=== PATIENT | female | born 1960 | race Caucasian/White ===

== ENCOUNTER 2024-10-28 12:25 | Inpatient (IN) ==
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
[2024-10-28 13:27] LABS: Hematocrit (blood only) 44.0 % (37.0-47.0); Hemoglobin 15.3 g/dl (12.0-16.0); Immature Granulocytes # (auto) 0.02 K/uL (0.01-0.20); Immature Granulocytes % (auto) 0.3 %; Mean Corpuscular Hemoglobin 30.2 pg (25.0-34.0); Mean Corpuscular Volume 87.0 fL (80.0-100.0); Platelet Count 246 K/uL (130-400); RDW Standard Deviation 43.0 fL (36.4-46.3); Red Blood Count 5.06 M/uL (4.20-5.40); White Blood Count 7.83 K/ul (4.8-10.8)
[2024-10-28 13:33] LABS: Appearance Urine Clear (Clear); Bacteria Urine Automated 2+ (None Seen); Cast Urine Automated 0-2 /lpf (0-2); Glucose Urine UA Negative (Negative); RBC Urine Automated 0-2 /hpf (0-2); WBC Urine Automated 21-50 /hpf (0-5)
[2024-10-28 13:34] LABS: Alanine Aminotransferase 12.0 U/L (7-52); Albumin Globulin Ratio 1.6 (0.9-2); Alkaline Phosphatase 76.0 U/L (34-104); Anion Gap 9.0 (3-11); Bilirubin,Total 0.5 mg/dl (0.2-1.0); Blood Urea Nitrogen 7.0 mg/dl (6-23); Calcium 9.6 mg/dl (8.6-10.3); Carbon Dioxide 22.0 mmol/L (21-32); Chloride 109.0 mmol/L (98-107); Creatinine Clr Calc Pharmacy 77.2 ml/min; Globulin 2.9 gm/dl (2.5-4.0); Glucose 108.0 mg/dl (70-99(Fasting)); Potassium 3.6 mmol/L (3.5-5.1); Sodium 140.0 mmol/L (136-145); Total Protein 7.5 gm/dl (6.0-8.3)
[2024-10-28 13:49] LABS: Thyroid Stimulating Hormone 1.804 uIu/ml (0.300-4.500)
[2024-10-28 13:59] LABS: Acetaminophen < 3 ug/ml (10-30); Salicylate < 3.0 mg/dl (3.0-30)
[2024-10-28] MEDS: NICOTINE 14 MG/24 HR PATCH TD SCH (14:06)
[2024-10-28 14:07] LABS: Amphetamines+Metham, Urine Neg (Neg); MDMA (Ecstacy), Urine Neg (Neg); Marijuana, Urine Pos (Neg)
[2024-10-28] MEDS ORDERED: BISMUTH SUBSALICYLATE 262 MG CHEW PO PRN (20:37)
[2024-10-28] MEDS ORDERED: ALUMINUM/MAGNESIUM SUSP 30 ML UDC PO PRN (20:37)
[2024-10-28] MEDS ORDERED: LORazepam 1 MG TAB PO PRN (20:38)
[2024-10-29] MEDS: ACETAMINOPHEN 325 MG TAB PO PRN (05:53)
[2024-10-29] MEDS: REMOVE NICODERM PATCH SCH (09:38)
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
[2024-10-30] MEDS: SULFAMETHOXAZOLE/TRIMETHOPRIM DS 800/160MG TAB PO SCH (14:57)
[2024-10-30] MEDS: SODIUM CHLORIDE 0.65% NA SOLN 45 ML (OCEAN) PRN (15:34)
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
[2024-10-30] MEDS: ARIPiprazole 5 MG TAB PO SCH (21:07)
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
[2024-10-31] MEDS: OLANZapine 10 MG TAB PO SCH (20:40)
[2024-11-01 08:22] LABS: Marijuana Quant, GCMS Urine 24 ng/mL (<5)
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
[2024-11-01] MEDS: OLANZapine 10 MG TAB PO SCH (20:32)
[2024-11-01] MEDS ORDERED: OLANZapine 10 MG TAB PO SCH (21:00)
[2024-11-02] MEDS: PSYLLIUM HUSK 4GM PACKET PO SCH (08:48)
--- NOTE | 2024-11-02 15:32 | Psychiatric Progress Note ---
Date of Service November 02, 2024 Impression / Recommendations Impression ADRIAN MATOS is a 63-year-old woman who is currently unhoused (though reports her permanent address is [facility]), has a history of delusions and paranoia, and was admitted on 10/28/24 20:09 on a 201 voluntary commitment for psychosis and contingent SI related to risk of homelessness after being evicted from a local hotel after overdrafting her account. Diagnostically consistent with unspecified psychosis with differential including primary psychotic disorder like schizophrenia (though appears fairly organized in terms of her behaviors and no obvious hallucinations; more likely schizoaffective disorder given limited negative symptoms) vs delusional disorder (seems likely given long history of fixed persecutory delusions and paranoia) vs bipolar affective disorder current manic episode (some hyperreligious delusions but also with recent misuse of finances but no other psychomotor agitation, sleep issues or speech changes to suggest at this point) vs substance-induced psychosis given use of cannabis and UDS positive for cannabis. Also possible is contribution of symptoms from chronic Lyme disease which is reportedly the reason she is on disability, unclear when this was diagnosed. A: Patient appears less preoccupied about persecutory delusions. Presenting improved sleep and appetite. Social work established outpatient appointments. Continued conditional suicidal ideation. MNPR due to psychosis with significant paranoia, persecutory delusions Overall I spent a total of 45 minutes for this admission including review of chart records, review of labwork, direct evaluation of the patient, counseling the patient, ordering medication, risk assessment, discussion with the psychiatric liason RN and documentation in the electronic health record. (1) Feeling suicidal: (2) Psychotic disorder with delusions: (3) Lyme disease: (4) Cannabis use disorder, mild, abuse: (5) Homeless: Plan 11/02/2024: Continue medications and treatment plan 11/01/2024: Olanzapine 10 mg every evening instead of night 10/31/2024: Discontinue aripiprazole Start olanzapine 10 mg at bedtime 10/30/2024: Start Bactrim DS twice daily for 3 days Start aripiprazole 5 mg at bedtime 10/29/2024: The patient was admitted to the [facility] ([facility]) on q15 min checks (behavioral with suicide precautions) for safety. The patient will participate in group, recreational, and milieu therapies and will be offered additional individual and family sessions as clinically appropriate. -She is declining all medications, she would likely benefit from an antipsychotic -She is willing to get established with a behavioral health housing case manager, LIZETTE to begin this process -No indication at this point that she lacks decision making capacity regarding management of her finances, nor is she interested in getting help with her finances through a rep payee. Rather it seems she struggles with impulsivity and spends her money in non-financially responsible ways Inventory Assets Strengths: knows how to seek out resources to meet her needs Needs: stabilization, medication, outpatient resources Suicide Risk Level Suicide Risk Level: Moderate (q15 min suicide checks) (endorses contingent SI but also with psychosis so difficult to know how disorganized she may be, for now feels safe in the hospital and feels able to ask for support if needed) Risk Factors Assessment Male: No : Yes Do You Have Access To A Gun?: No Health Problems: No Mental Health Diagnoses: Yes Substance Use Disorders: Yes Previous Attempt: No Family History of Suicide: No Previous Psychiatric Hospitalization: Yes Hopelessness: No Protective Factors Assessment Taoism Beliefs: Yes Employed: No (Unable to attain employment after trying) Stable Relationships: No Supportive Family: No Good Rapport with Provider: No (no outpatient providers) Interval History Identifying Information ADRIAN MATOS is a 63-year-old woman who is currently unhoused (though reports her permanent address is [facility]), has a history of delusions and paranoia, and was admitted on 10/28/24 20:09 on a 201 voluntary commitment for psychosis and contingent SI related to risk of homelessness after being evicted from a local hotel after overdrafting her account. Chief Complaint Psychosis Review of Systems Sleep Information Total Hours of Sleep: 6.75 Meal Information Percent Meal Consumed - Breakfast: 90 Percent Meal Consumed - Lunch: 100 Percent Meal Consumed - Dinner: 100 Subjective Subjective Patient was seen & assessed and interval progress reviewed with treatment team nursing and social work Patient reports sleeping better last night. Did not have a bowel movement and took Metamucil. Denies feeling sedated in the morning. Denies AVH. Reports having a RV which is partially completed. Reporting suicidal intent if discharged from the hospital. Physical Exam Mental Examination Appearance: Well Groomed Eye Contact: Maintains Eye Contact Motor Behavior: Unremarkable Speech: Normal Mood: Euthymic and Calm Affect: Congruent Thought Process: Intact and Linear Thought Content: Intact and Obsessional Thoughts (delusions of persecution) Hallucinations: None Insight: Poor (to limited) Judgement: Poor (to limited) Vital Signs (Past 24 Hours) Last Vital Signs Temp 36.9 C 11/02/24 06:23 Pulse 89 11/02/24 06:24 Resp 16 11/02/24 06:23 BP 119/85 11/02/24 06:24 Pulse Ox 98 10/28/24 20:30 O2 Del Method Room Air 10/28/24 20:30 Results & Data ([facility]) Current Inpatient Medications Current Inpatient Medications: Current Inpatient Medications Acetaminophen (Acetaminophen 325 Mg Tab) 650 mg PO Q4H PRN PRN Reason: Headache or Minor Fever Stop: 11/27/24 20:36 Last Admin: 10/31/24 13:24 Dose: 650 mg Al Hydrox/Mg Hydrox/Simethicone (Aluminum/Magnesium Susp 30 Ml Udc) 30 ml PO Q4H PRN PRN Reason: GI Upset Stop: 11/27/24 20:36 Bismuth Subsalicylate (Bismuth Subsalicylate 262 Mg Chew) 2 tab PO Q30M PRN PRN Reason: Loose Stool/Diarrhea Stop: 11/27/24 20:36 Hydroxyzine HCl (Hydroxyzine Hcl 25 Mg Tab) 50 mg PO HSZ PRN PRN Reason: Insomnia Stop: 11/27/24 20:36 Hydroxyzine HCl (Hydroxyzine Hcl 25 Mg Tab) 25 mg PO Q4H PRN PRN Reason: Anxiety Stop: 11/27/24 20:36 Lorazepam (Lorazepam 1 Mg Tab) 1 mg PO BID PRN PRN Reason: Delusions Stop: 11/27/24 20:37 Magnesium Hydroxide (Magnesium Hydroxide Susp 30 Ml Udc) 30 ml PO DAILY PRN PRN Reason: Constipation Stop: 11/27/24 20:36 Miscellaneous (Remove Nicoderm Patch) 1 each N/A DAILY@0859 [facility] Stop: 11/28/24 08:58 Last Admin: 11/02/24 11:16 Dose: 1 each Nicotine (Nicotine 14 Mg/24 Hr Patch) 1 patch TD QAM [facility] Stop: 11/27/24 13:59 Last Admin: 11/02/24 12:23 Dose: 1 patch Olanzapine (Olanzapine 10 Mg Tab) 10 mg PO DAILY@1999 [facility] Stop: 12/01/24 19:59 Last Admin: 11/01/24 20:32 Dose: 10 mg Psyllium Hydrophilic Mucilloid (Psyllium Husk 4gm Packet) 4 gm PO QAM [facility] Stop: 12/02/24 08:59 Last Admin: 11/02/24 08:48 Dose: 4 gm Risperidone (Risperidone 1 Mg Tablet) 1 mg PO BID PRN PRN Reason: Psychosis/Agitation Stop: 11/27/24 20:59 Sodium Chloride (Sodium Chloride 0.65% Na Soln 45 Ml ([place])) 1 - 2 sprays NA PRN PRN PRN Reason: Nasal Dryness/Congestion Stop: 11/27/24 20:36 Last Admin: 10/30/24 15:34 Dose: 2 sprays Mental Health & Subst Abuse Tx Psychiatrist Name of Psychiatrist: Jennifer Forbes Psychiatrist's Date Of Appointment With Psychiatric Provider: 11/10/24 Time of Appointment with Psychiatrist: 8:00 AM Psychiatric Appointment Comment: Arrive at 8am for intake appointment for 1.5 hours for first appt. Therapist Name of Therapist: Refused therapist Art Supervisor Name of Art Supervisor: PATH embedded software manager - Jennifer Ramesh Phone Number for Art Supervisor: [phone] Case Management Appointment Comment: corporate general manager will assist you with housing Post Discharge Appointments Primary Care Physician Name Of Family Doctor/PCP: Behzad Sarmiento Contact Information Discharge Discharge Address: Homeless
[2024-11-02] MEDS: MAGNESIUM HYDROXIDE SUSP 30 ML UDC PO PRN (17:46)
--- NOTE | 2024-11-03 15:42 | Psychiatric Progress Note ---
Date of Service November 03, 2024 Impression / Recommendations Impression ADRIAN MATOS is a 63-year-old woman who is currently unhoused (though reports her permanent address is [facility]), has a history of delusions and paranoia, and was admitted on 10/28/24 20:09 on a 201 voluntary commitment for psychosis and contingent SI related to risk of homelessness after being evicted from a local hotel after overdrafting her account. Diagnostically consistent with unspecified psychosis with differential including primary psychotic disorder like schizophrenia (though appears fairly organized in terms of her behaviors and no obvious hallucinations; more likely schizoaffective disorder given limited negative symptoms) vs delusional disorder (seems likely given long history of fixed persecutory delusions and paranoia) vs bipolar affective disorder current manic episode (some hyperreligious delusions but also with recent misuse of finances but no other psychomotor agitation, sleep issues or speech changes to suggest at this point) vs substance-induced psychosis given use of cannabis and UDS positive for cannabis. Also possible is contribution of symptoms from chronic Lyme disease which is reportedly the reason she is on disability, unclear when this was diagnosed. A: Patient is presenting stable sleep. Appears less preoccupied about her persecutory delusions which continue to be persistent. Concern for cluster B pathology. Working with case management for housing resources. MNPR due to psychosis with significant paranoia, persecutory delusions Overall I spent a total of 35 minutes for this admission including review of chart records, review of labwork, direct evaluation of the patient, counseling the patient, ordering medication, risk assessment, discussion with the psychiatric liason RN and documentation in the electronic health record. (1) Persecutory delusion: (2) Schizophrenia: (3) Feeling suicidal: (4) Lyme disease: (5) Cannabis use disorder, mild, abuse: (6) Homeless: Plan 11/03/2024: Continue medications and treatment plan 11/02/2024: Continue medications and treatment plan 11/01/2024: Olanzapine 10 mg every evening instead of night 10/31/2024: Discontinue aripiprazole Start olanzapine 10 mg at bedtime 10/30/2024: Start Bactrim DS twice daily for 3 days Start aripiprazole 5 mg at bedtime 10/29/2024: The patient was admitted to the [facility] (locked inpatient mental health unit) on q15 min checks (behavioral with suicide precautions) for safety. The patient will participate in group, recreational, and milieu therapies and will be offered additional individual and family sessions as clinically appropriate. -She is declining all medications, she would likely benefit from an antipsychotic -She is willing to get established with a behavioral health case worker, LIZETTE to begin this process -No indication at this point that she lacks decision making capacity regarding management of her finances, nor is she interested in getting help with her finances through a rep payee. Rather it seems she struggles with impulsivity and spends her money in non-financially responsible ways Inventory Assets Strengths: knows how to seek out resources to meet her needs Needs: stabilization, medication, outpatient resources Suicide Risk Level Suicide Risk Level: Moderate (q15 min suicide checks) (endorses contingent SI but also with psychosis so difficult to know how disorganized she may be, for now feels safe in the hospital and feels able to ask for support if needed) Risk Factors Assessment Male: No : Yes Do You Have Access To A Gun?: No Health Problems: No Mental Health Diagnoses: Yes Substance Use Disorders: Yes Previous Attempt: No Family History of Suicide: No Previous Psychiatric Hospitalization: Yes Hopelessness: No Protective Factors Assessment Christianity Beliefs: Yes Employed: No (Unable to attain employment after trying) Stable Relationships: No Supportive Family: No Good Rapport with Provider: No (no outpatient providers) Interval History Identifying Information ADRIAN MATOS is a 63-year-old woman who is currently unhoused (though reports her permanent address is [facility]), has a history of delusions and paranoia, and was admitted on 10/28/24 20:09 on a 201 voluntary commitment for psychosis and contingent SI related to risk of homelessness after being evicted from a local h otel after overdrafting her account. Chief Complaint Psychosis Review of Systems Sleep Information Total Hours of Sleep: 6 Meal Information Percent Meal Consumed - Breakfast: 100 Percent Meal Consumed - Lunch: 100 Percent Meal Consumed - Dinner: 100 Subjective Subjective Patient was seen & assessed and interval progress reviewed with treatment team nursing and social work Slept well. Having poor boundaries with a peer. Engaging in good self-care. Resistant to signing a release of information forms related to her care. On approach she reports being upset with the dope maintenance worker because they did not wipe down the baseboard where there was a stain. Reports sleeping well. Had a bowel movement. When asked about new concerns related to family she reports no new news. Says that she put on the Internet that she was coming to the hospital and is surprised the family have not tried to reach out. Maintains that they have been paid off. Physical Exam Mental Examination Appearance: Well Groomed Eye Contact: Maintains Eye Contact Motor Behavior: Unremarkable Speech: Normal Mood: Euthymic and Calm Affect: Congruent Thought Process: Intact and Linear Thought Content: Intact and Obsessional Thoughts (delusions of persecution) Hallucinations: None Insight: Poor (to limited) Judgement: Poor (to limited) Vital Signs (Past 24 Hours) Last Vital Signs Temp 36.9 C 11/03/24 06:18 Pulse 79 11/03/24 06:19 Resp 16 11/03/24 06:18 BP 114/55 L 11/03/24 06:19 Pulse Ox 98 10/28/24 20:30 O2 Del Method Room Air 10/28/24 20:30 Results & Data ([facility] [[email or web address] Current Inpatient Medications Current Inpatient Medications: Current Inpatient Medications Acetaminophen (Acetaminophen 325 Mg Tab) 650 mg PO Q4H PRN PRN Reason: Headache or Minor Fever Stop: 11/27/24 20:36 Last Admin: 11/03/24 13:47 Dose: 650 mg Al Hydrox/Mg Hydrox/Simethicone (Aluminum/Magnesium Susp 30 Ml Udc) 30 ml PO Q4H PRN PRN Reason: GI Upset Stop: 11/27/24 20:36 Bismuth Subsalicylate (Bismuth Subsalicylate 262 Mg Chew) 2 tab PO Q30M PRN PRN Reason: Loose Stool/Diarrhea Stop: 11/27/24 20:36 Hydroxyzine HCl (Hydroxyzine Hcl 25 Mg Tab) 50 mg PO HSZ PRN PRN Reason: Insomnia Stop: 11/27/24 20:36 Hydroxyzine HCl (Hydroxyzine Hcl 25 Mg Tab) 25 mg PO Q4H PRN PRN Reason: Anxiety Stop: 11/27/24 20:36 Loratadine (Loratadine 10 Mg Tab) 10 mg PO QAM [facility] Stop: 12/03/24 15:14 Lorazepam (Lorazepam 1 Mg Tab) 1 mg PO BID PRN PRN Reason: Delusions Stop: 11/27/24 20:37 Magnesium Hydroxide (Magnesium Hydroxide Susp 30 Ml Udc) 30 ml PO DAILY PRN PRN Reason: Constipation Stop: 11/27/24 20:36 Last Admin: 11/02/24 17:46 Dose: 30 ml Miscellaneous (Remove Nicoderm Patch) 1 each N/A DAILY@0859 [facility] Stop: 11/28/24 08:58 Last Admin: 11/03/24 08:59 Dose: 1 each Nicotine (Nicotine 14 Mg/24 Hr Patch) 1 patch TD QAM [facility] Stop: 11/27/24 13:59 Last Admin: 11/03/24 08:56 Dose: 1 patch Olanzapine (Olanzapine 10 Mg Tab) 10 mg PO DAILY@1999 [facility] Stop: 12/01/24 19:59 Last Admin: 11/02/24 20:37 Dose: 10 mg Psyllium Hydrophilic Mucilloid (Psyllium Husk 4gm Packet) 4 gm PO QAM [facility] Stop: 12/02/24 08:59 Last Admin: 11/03/24 08:56 Dose: 4 gm Risperidone (Risperidone 1 Mg Tablet) 1 mg PO BID PRN PRN Reason: Psychosis/Agitation Stop: 11/27/24 20:59 Sodium Chloride (Sodium Chloride 0.65% Na Soln 45 Ml ([place])) 1 - 2 sprays NA PRN PRN PRN Reason: Nasal Dryness/Congestion Stop: 11/27/24 20:36 Last Admin: 10/30/24 15:34 Dose: 2 sprays Mental Health & Subst Abuse Tx Psychiatrist Name of Psychiatrist: Jennifer Forbse Psychiatrist's Date Of Appointment With Psychiatric Provider: 11/10/24 Time of Appointment with Psychiatrist: 8:00 AM Psychiatric Appointment Comment: Arrive at 8am for intake appointment for 1.5 hours for first appt. Therapist Name of Therapist: Refused therapist Mailing Machine Operator Name of Mailing Machine Operator: [facility] home health care case manager - Jennifer Ramesh Phone Number for Mailing Machine Operator: [phone] Case Management Appointment Comment: fleet dispatch manager will assist you with housing Post Discharge Appointments Primary Care Physician Name Of Family Doctor/PCP: Behzad Sarmiento Contact Information Discharge Discharge Address: Homeless
[2024-11-03] MEDS: LORATADINE 10 MG TAB PO SCH (15:50)
--- NOTE | 2024-11-04 12:41 | Psychiatric Progress Note ---
Date of Service November 04, 2024 Impression / Recommendations Impression ADRIAN MATOS is a 63-year-old woman who is currently unhoused (though reports her permanent address is [facility]), has a history of delusions and paranoia, and was admitted on 10/28/24 20:09 on a 201 voluntary commitment for psychosis and contingent SI related to risk of homelessness after being evicted from a local hotel after overdrafting her account. Diagnostically consistent with unspecified psychosis with differential including primary psychotic disorder like schizophrenia (though appears fairly organized in terms of her behaviors and no obvious hallucinations; more likely schizoaffective disorder given limited negative symptoms) vs delusional disorder (seems likely given long history of fixed persecutory delusions and paranoia) vs bipolar affective disorder current manic episode (some hyperreligious delusions but also with recent misuse of finances but no other psychomotor agitation, sleep issues or speech changes to suggest at this point) vs substance-induced psychosis given use of cannabis and UDS positive for cannabis. Also possible is contribution of symptoms from chronic Lyme disease which is reportedly the reason she is on disability, unclear when this was diagnosed. A: Patient is presenting stable sleep and behaviors. Has pre-existing persecutory delusions however appears less preoccupied. She is goal directed towards housing presents conditional SI. MNPR due to psychosis with significant paranoia, persecutory delusions Overall I spent a total of 35 minutes for this admission including review of chart records, review of labwork, direct evaluation of the patient, counseling the patient, ordering medication, risk assessment, discussion with the psychiatric liason RN and documentation in the electronic health record. (1) Persecutory delusion: (2) Schizophrenia: (3) Feeling suicidal: (4) Lyme disease: (5) Cannabis use disorder, mild, abuse: (6) Homeless: Plan 11/04/2024: Start MiraLAX daily 11/03/2024: Continue medications and treatment plan 11/02/2024: Continue medications and treatment plan 11/01/2024: Olanzapine 10 mg every evening instead of night 10/31/2024: Discontinue aripiprazole Start olanzapine 10 mg at bedtime 10/30/2024: Start Bactrim DS twice daily for 3 days Start aripiprazole 5 mg at bedtime 10/29/2024: The patient was admitted to the [facility]) on q15 min checks (behavioral with suicide precautions) for safety. The patient will participate in group, recreational, and milieu therapies and will be offered additional individual and family sessions as clinically appropriate. -She is declining all medications, she would likely benefit from an antipsychotic -She is willing to get established with a behavioral health showcase trimmer, LIZETTE to begin this process -No indication at this point that she lacks decision making capacity regarding management of her finances, nor is she interested in getting help with her finances through a rep payee. Rather it seems she struggles with impulsivity and spends her money in non-financially responsible ways Inventory Assets Strengths: knows how to seek out resources to meet her needs Needs: stabilization, medication, outpatient resources Suicide Risk Level Suicide Risk Level: Moderate (q15 min suicide checks) (endorses contingent SI but also with psychosis so difficult to know how disorganized she may be, for now feels safe in the hospital and feels able to ask for support if needed) Risk Factors Assessment Male: No : Yes Do You Have Access To A Gun?: No Health Problems: No Mental Health Diagnoses: Yes Substance Use Disorders: Yes Previous Attempt: No Family History of Suicide: No Previous Psychiatric Hospitalization: Yes Hopelessness: No Protective Factors Assessment Bahai Beliefs: Yes Employed: No (Unable to attain employment after trying) Stable Relationships: No Supportive Family: No Good Rapport with Provider: No (no outpatient providers) Interval History Identifying Information ADRIAN MATOS is a 63-year-old woman who is currently unhoused (though reports her permanent address is [facility]), has a history of delusions and paranoia, and was admitted on 10/28/24 20:09 on a 201 voluntary commitment for psychosis and contingent SI related to risk of homelessness after being evicted from a local hotel after overdrafting her account. Chief Complaint Psychosis Review of Systems Sleep Information Total Hours of Sleep: 6.5 Meal Information Percent Meal Consumed - Breakfast: 100 Percent Meal Consumed - Lunch: 100 Percent Meal Consumed - Dinner: 50 Subjective Subjective Patient was seen & assessed and interval progress reviewed with treatment team nursing and social work Per social work and case management patient is not eligible for emergency housing. Patient has not tried to call 211. [facility] can accommodate up to 30 days and they have beds available. print shop manager will continue to follow. Patient has been attending groups. Slept 6.5 hours. On interview patient reports a fair mood. Sleeping well. Says that she can go to [facility] because that is where she got "getting stuck". Allergies are improved. Complaining of constipation and incomplete bowel movement. Presents SI if she does not have a place to stay upon discharge. Physical Exam Mental Examination Appearance: Well Groomed Eye Contact: Maintains Eye Contact Motor Behavior: Unremarkable Speech: Normal Mood: Euthymic and Calm Affect: Congruent Thought Process: Intact and Linear Thought Content: Intact and Obsessional Thoughts (delusions of persecution) Hallucinations: None Insight: Poor (to limited) Judgement: Poor (to limited) Vital Signs (Past 24 Hours) Last Vital Signs Temp 36.5 C 11/04/24 06:17 Pulse 64 11/04/24 06:18 Resp 16 11/04/24 06:17 BP 125/80 11/04/24 06:18 Pulse Ox 98 10/28/24 20:30 O2 Del Method Room Air 10/28/24 20:30 Results & Data ([facility]) Current Inpatient Medications Current Inpatient Medications: Current Inpatient Medications Acetaminophen (Acetaminophen 325 Mg Tab) 650 mg PO Q4H PRN PRN Reason: Headache or Minor Fever Stop: 11/27/24 20:36 Last Admin: 11/03/24 19:36 Dose: 650 mg Al Hydrox/Mg Hydrox/Simethicone (Aluminum/Magnesium Susp 30 Ml Udc) 30 ml PO Q4H PRN PRN Reason: GI Upset Stop: 11/27/24 20:36 Bismuth Subsalicylate (Bismuth Subsalicylate 262 Mg Chew) 2 tab PO Q30M PRN PRN Reason: Loose Stool/Diarrhea Stop: 11/27/24 20:36 Hydroxyzine HCl (Hydroxyzine Hcl 25 Mg Tab) 50 mg PO HSZ PRN PRN Reason: Insomnia Stop: 11/27/24 20:36 Hydroxyzine HCl (Hydroxyzine Hcl 25 Mg Tab) 25 mg PO Q4H PRN PRN Reason: Anxiety Stop: 11/27/24 20:36 Loratadine (Loratadine 10 Mg Tab) 10 mg PO QAM [facility] Stop: 12/03/24 15:14 Last Admin: 11/04/24 08:49 Dose: 10 mg Lorazepam (Lorazepam 1 Mg Tab) 1 mg PO BID PRN PRN Reason: Delusions Stop: 11/27/24 20:37 Magnesium Hydroxide (Magnesium Hydroxide Susp 30 Ml Udc) 30 ml PO DAILY PRN PRN Reason: Constipation Stop: 11/27/24 20:36 Last Admin: 11/03/24 19:32 Dose: 30 ml Miscellaneous (Remove Nicoderm Patch) 1 each N/A DAILY@0859 [facility] Stop: 11/28/24 08:58 Last Admin: 11/04/24 08:50 Dose: 1 each Nicotine (Nicotine 14 Mg/24 Hr Patch) 1 patch TD QAM [facility] Stop: 11/27/24 13:59 Last Admin: 11/04/24 08:49 Dose: 1 patch Olanzapine (Olanzapine 10 Mg Tab) 10 mg PO DAILY@1999 [facility] Stop: 12/01/24 19:59 Last Admin: 11/03/24 19:37 Dose: 10 mg Polyethylene Glycol (Polyethylene (Miralax) 17 Gm Pack) 17 gm PO DAILY [facility] Stop: 12/04/24 12:14 Psyllium Hydrophilic Mucilloid (Psyllium Husk 4gm Packet) 4 gm PO QAM [facility] Stop: 12/02/24 08:59 Last Admin: 11/04/24 08:49 Dose: 4 gm Risperidone (Risperidone 1 Mg Tablet) 1 mg PO BID PRN PRN Reason: Psychosis/Agitation Stop: 11/27/24 20:59 Sodium Chloride (Sodium Chloride 0.65% Na Soln 45 Ml ([place])) 1 - 2 sprays NA PRN PRN PRN Reason: Nasal Dryness/Congestion Stop: 11/27/24 20:36 Last Admin: 10/30/24 15:34 Dose: 2 sprays Mental Health & Subst Abuse Tx Psychiatrist Name of Psychiatrist: Jennifer Hernández Hilda Forbes Psychiatrist's Date Of Appointment With Psychiatric Provider: 11/10/24 Time of Appointment with Psychiatrist: 8:00 AM Psychiatric Appointment Comment: Arrive at 8am for intake appointment for 1.5 hours for first appt. Therapist Name of Therapist: Refused therapist Tugboat Captain Name of Tugboat Captain: JOAN Leesretail support manager - Jennifer Ramesh Phone Number for Tugboat Captain: [phone] Case Management Appointment Comment: print shop manager will assist you with housing Post Discharge Appointments Primary Care Physician Name Of Family Doctor/PCP: Behzad Sarmiento Contact Information Discharge Discharge Address: [facility]
[2024-11-04] MEDS: POLYETHYLENE (MIRALAX) 17 GM PACK PO SCH (15:26)
--- NOTE | 2024-11-05 13:12 | Psychiatric Progress Note ---
Date of Service November 05, 2024 Impression / Recommendations Impression ADRIAN MATOS is a 63-year-old woman who is currently unhoused (though reports her permanent address is [facility]), has a history of delusions and paranoia, and was admitted on 10/28/24 20:09 on a 201 voluntary commitment for psychosis and contingent SI related to risk of homelessness after being evicted from a local hotel after overdrafting her account. Diagnostically consistent with unspecified psychosis with differential including primary psychotic disorder like schizophrenia (though appears fairly organized in terms of her behaviors and no obvious hallucinations; more likely schizoaffective disorder given limited negative symptoms) vs delusional disorder (seems likely given long history of fixed persecutory delusions and paranoia) vs bipolar affective disorder current manic episode (some hyperreligious delusions but also with recent misuse of finances but no other psychomotor agitation, sleep issues or speech changes to suggest at this point) vs substance-induced psychosis given use of cannabis and UDS positive for cannabis. Also possible is contribution of symptoms from chronic Lyme disease which is reportedly the reason she is on disability, unclear when this was diagnosed. A: Patient is presenting stable sleep and behaviors. Has pre-existing persecutory delusions however appears less preoccupied. She is goal directed towards housing presents conditional SI. MNPR due to psychosis with significant paranoia, persecutory delusions Overall I spent a total of 35 minutes for this admission including review of chart records, review of labwork, direct evaluation of the patient, counseling the patient, ordering medication, risk assessment, discussion with the psychiatric liason RN and documentation in the electronic health record. (1) Persecutory delusion: (2) Schizophrenia: (3) Feeling suicidal: (4) Lyme disease: (5) Cannabis use disorder, mild, abuse: (6) Homeless: Plan 11/05/2024: Start magnesium citrate nightly. Stop Miralax. 11/04/2024: Start MiraLAX daily 11/03/2024: Continue medications and treatment plan 11/02/2024: Continue medications and treatment plan 11/01/2024: Olanzapine 10 mg every evening instead of night 10/31/2024: Discontinue aripiprazole Start olanzapine 10 mg at bedtime 10/30/2024: Start Bactrim DS twice daily for 3 days Start aripiprazole 5 mg at bedtime 10/29/2024: The patient was admitted to the [facility] ([facility] inpatient mental health unit) on q15 min checks (behavioral with suicide precautions) for safety. The patient will participate in group, recreational, and milieu therapies and will be offered additional individual and family sessions as clinically appropriate. -She is declining all medications, she would likely benefit from an antipsychotic -She is willing to get established with a behavioral health child welfare caseworker, LIZETTE to begin this process -No indication at this point that she lacks decision making capacity regarding management of her finances, nor is she interested in getting help with her finances through a rep payee. Rather it seems she struggles with impulsivity and spends her money in non-financially responsible ways Inventory Assets Strengths: knows how to seek out resources to meet her needs Needs: stabilization, medication, outpatient resources Suicide Risk Level Suicide Risk Level: Moderate (q15 min suicide checks) (endorses contingent SI but also with psychosis so difficult to know how disorganized she may be, for now feels safe in the hospital and feels able to ask for support if needed) Risk Factors Assessment Male: No : Yes Do You Have Access To A Gun?: No Health Problems: No Mental Health Diagnoses: Yes Substance Use Disorders: Yes Previous Attempt: No Family History of Suicide: No Previous Psychiatric Hospitalization: Yes Hopelessness: No Protective Factors Assessment Yarsanism Beliefs: Yes Employed: No (Unable to attain employment after trying) Stable Relationships: No Supportive Family: No Good Rapport with Provider: No (no outpatient providers) Interval History Identifying Information ADRIAN MATOS"[facility]" is a 63-year-old woman who is currently unhoused (though reports her permanent address is [facility]), has a history of delusions and paranoia, and was admitted on 10/28/24 20:09 on a 201 voluntary commitment for psychosis and contingent SI related to risk of homelessness after being evicted from a local hotel after overdrafting her account. Chief Complaint Psychosis Review of Systems Sleep Information Total Hours of Sleep: 6 Meal Information Percent Meal Consumed - Breakfast: 100 Percent Meal Consumed - Lunch: 100 Percent Meal Consumed - Dinner: 100 Subjective Subjective Patient was seen & assessed and interval progress reviewed with treatment team nursing and social work Overnight had disrupted sleep. Attended groups. Mood 10 out of 10. She reports being up until 4:30 AM. Ate a lot more than she normally does yesterday. Future oriented towards housing. Asking for psoriasis treatment and magnesium supplements. Physical Exam Mental Examination Appearance: Well Groomed Eye Contact: Maintains Eye Contact Motor Behavior: Unremarkable Speech: Normal Mood: Euthymic and Calm Affect: Congruent Thought Process: Intact and Linear Thought Content: Intact and Obsessional Thoughts (delusions of persecution) Hallucinations: None Insight: Poor (to limited) Judgement: Poor (to limited) Vital Signs (Past 24 Hours) Last Vital Signs Temp 36.6 C 11/05/24 06:43 Pulse 64 11/04/24 06:18 Resp 16 11/05/24 06:43 BP 121/70 11/05/24 06:44 Pulse Ox 97 11/05/24 06:43 O2 Del Method Room Air 11/05/24 06:43 Results & Data ([facility]) Current Inpatient Medications Current Inpatient Medications: Current Inpatient Medications Acetaminophen (Acetaminophen 325 Mg Tab) 650 mg PO Q4H PRN PRN Reason: Headache or Minor Fever Stop: 11/27/24 20:36 Last Admin: 11/03/24 19:36 Dose: 650 mg Al Hydrox/Mg Hydrox/Simethicone (Aluminum/Magnesium Susp 30 Ml Udc) 30 ml PO Q4H PRN PRN Reason: GI Upset Stop: 11/27/24 20:36 Bismuth Subsalicylate (Bismuth Subsalicylate 262 Mg Chew) 2 tab PO Q30M PRN PRN Reason: Loose Stool/Diarrhea Stop: 11/27/24 20:36 Hydroxyzine HCl (Hydroxyzine Hcl 25 Mg Tab) 50 mg PO HSZ PRN PRN Reason: Insomnia Stop: 11/27/24 20:36 Hydroxyzine HCl (Hydroxyzine Hcl 25 Mg Tab) 25 mg PO Q4H PRN PRN Reason: Anxiety Stop: 11/27/24 20:36 Loratadine (Loratadine 10 Mg Tab) 10 mg PO QAM [facility] Stop: 12/03/24 15:14 Last Admin: 11/05/24 08:46 Dose: 10 mg Lorazepam (Lorazepam 1 Mg Tab) 1 mg PO BID PRN PRN Reason: Delusions Stop: 11/27/24 20:37 Magnesium Hydroxide (Magnesium Hydroxide Susp 30 Ml Udc) 30 ml PO DAILY PRN PRN Reason: Constipation Stop: 11/27/24 20:36 Last Admin: 11/03/24 19:32 Dose: 30 ml Miscellaneous (Remove Nicoderm Patch) 1 each N/A DAILY@59 [facility] Stop: 11/28/24 08:58 Last Admin: 11/05/24 08:47 Dose: 1 each Nicotine (Nicotine 14 Mg/24 Hr Patch) 1 patch TD QAM [facility] Stop: 11/27/24 13:59 Last Admin: 11/05/24 08:47 Dose: 1 patch Olanzapine (Olanzapine 10 Mg Tab) 10 mg PO DAILY@1999 [facility] Stop: 12/01/24 19:59 Last Admin: 11/04/24 19:41 Dose: 10 mg Polyethylene Glycol (Polyethylene (Miralax) 17 Gm Pack) 17 gm PO DAILY [facility] Stop: 12/04/24 12:14 Last Admin: 11/05/24 08:46 Dose: 17 gm Psyllium Hydrophilic Mucilloid (Psyllium Husk 4gm Packet) 4 gm PO QAM [facility] Stop: 12/02/24 08:59 Last Admin: 11/05/24 08:46 Dose: 4 gm Risperidone (Risperidone 1 Mg Tablet) 1 mg PO BID PRN PRN Reason: Psychosis/Agitation Stop: 11/27/24 20:59 Sodium Chloride (Sodium Chloride 0.65% Na Soln 45 Ml ([place])) 1 - 2 sprays NA PRN PRN PRN Reason: Nasal Dryness/Congestion Stop: 11/27/24 20:36 Last Admin: 10/30/24 15:34 Dose: 2 sprays Mental Health & Subst Abuse Tx Psychiatrist Name of Psychiatrist: Jennifer Forbes Psychiatrist's Date Of Appointment With Psychiatric Provider: 11/10/24 Time of Appointment with Psychiatrist: 8:00 AM Psychiatric Appointment Comment: Arrive at 8am for intake appointment for 1.5 hours for first appt. Therapist Name of Therapist: Refused therapist Agricultural Extension Agent Name of Agricultural Extension Agent: JOAN Leesregulatory manager - Jennifer Ramesh Phone Number for Agricultural Extension Agent: [phone] Case Management Appointment Comment: legal records manager will assist you with housing Post Discharge Appointments Primary Care Physician Name Of Family Doctor/PCP: Behzad Sarmiento Contact Information Discharge Discharge Address: Homeless
[2024-11-05] MEDS: MAGNESIUM CITRATE 296 ML/BTL PO SCH (21:53)
--- NOTE | 2024-11-06 10:10 | Psychiatric Progress Note ---
Date of Service November 06, 2024 Impression / Recommendations Impression ADRIAN MATOS is a 63-year-old woman who is currently unhoused (though reports her permanent address is [facility]), has a history of delusions and paranoia, and was admitted on 10/28/24 20:09 on a 201 voluntary commitment for psychosis and contingent SI related to risk of homelessness after being evicted from a local hotel after overdrafting her account. Diagnostically consistent with unspecified psychosis with differential including primary psychotic disorder like schizophrenia (though appears fairly organized in terms of her behaviors and no obvious hallucinations; more likely schizoaffective disorder given limited negative symptoms) vs delusional disorder (seems likely given long history of fixed persecutory delusions and paranoia) vs bipolar affective disorder current manic episode (some hyperreligious delusions but also with recent misuse of finances but no other psychomotor agitation, sleep issues or speech changes to suggest at this point) vs substance-induced psychosis given use of cannabis and UDS positive for cannabis. Also possible is contribution of symptoms from chronic Lyme disease which is reportedly the reason she is on disability, unclear when this was diagnosed. A: Denies SI, focused on housing goals, didn't sleep as well after refusing olanzapine but no signs of wesley or new psychosis, ongoing paranoia/persecutory delusions regarding her family targeting her. She declines labwork for fasting lipid panel and HbA1c, AIMS score is 0. MNPR due to paranoia, persecutory delusions Overall, I spent a total of 40 minutes on this case including meeting with the patient, reviewing the chart, nursing report, orders, and documentation. (1) Persecutory delusion: (2) Schizophrenia: (3) Feeling suicidal: (4) Lyme disease: (5) Cannabis use disorder, mild, abuse: (6) Homeless: Plan 11/06/2024: Continue current medications and treatment plan, reviewed that she can decline olanzapine but I will continue to have it ordered 11/05/2024: Start magnesium citrate nightly. Stop Miralax. 11/04/2024: Start MiraLAX daily 11/03/2024: Continue medications and treatment plan 11/02/2024: Continue medications and treatment plan 11/01/2024: Olanzapine 10 mg every evening instead of night 10/31/2024: Discontinue aripiprazole Start olanzapine 10 mg at bedtime 10/30/2024: Start Bactrim DS twice daily for 3 days Start aripiprazole 5 mg at bedtime 10/29/2024: The patient was admitted to the [facility] ([facility] mental health unit) on q15 min checks (behavioral with suicide precautions) for safety. The patient will participate in group, recreational, and milieu therapies and will be offered additional individual and family sessions as clinically appropriate. -She is declining all medications, she would likely benefit from an antipsychotic -She is willing to get established with a behavioral health telehealth case manager, LIZETTE to begin this process -No indication at this point that she lacks decision making capacity regarding management of her finances, nor is she interested in getting help with her finances through a rep payee. Rather it seems she struggles with impulsivity and spends her money in non-financially responsible ways Inventory Assets Strengths: knows how to seek out resources to meet her needs Needs: stabilization, medication, outpatient resources Suicide Risk Level Suicide Risk Level: Moderate (q15 min suicide checks) (endorses contingent SI but also with psychosis so difficult to know how disorganized she may be, for now feels safe in the hospital and feels able to ask for support if needed) Risk Factors Assessment Male: No : Yes Do You Have Access To A Gun?: No Health Problems: No Mental Health Diagnoses: Yes Substance Use Disorders: Yes Previous Attempt: No Family History of Suicide: No Previous Psychiatric Hospitalization: Yes Hopelessness: No Protective Factors Assessment Quaker Beliefs: Yes Employed: No (Unable to attain employment after trying) Stable Relationships: No Supportive Family: No Good Rapport with Provider: No (no outpatient providers) Interval History Identifying Information ADRIAN MATOS"[facility]" is a 63-year-old woman who is currently unhoused (though reports her permanent address is [facility]), has a history of delusions and paranoia, and was admitted on 10/28/24 20:09 on a 201 voluntary commitment for psychosis and contingent SI related to risk of homelessness after being evicted from a local hotel after overdrafting her account. Chief Complaint "I don't need a pill, I need housing". Review of Systems Sleep Information Total Hours of Sleep: 4.75 Meal Information Percent Meal Consumed - Breakfast: 100 Percent Meal Consumed - Lunch: 100 Percent Meal Consumed - Dinner: 100 Subjective Subjective Patient was seen & assessed and interval progress reviewed with nursing. Very help seeking help rejecting. Has been offered options to assist with housing and she continues to decline these. Declined olanzapine last night. Reported her mood as "happy" and goal to rest before discharge. Today tells me she won't take olanzapine anymore as there is nothing "psychologically wrong with me". Discussed our concerns regarding some of her symptoms could be paranoia which she adamantly disagrees with. Very future focused on housing. Encouraged her to call 211 for additional resources. She is opposed to going to a local jail that has beds noting "I was there before and they gang stalked me". Physical Exam Psychiatric Orientation: alert and oriented x 3 Apperance: appropriately dressed and appropriately groomed Eye Contact: good eye contact Motor Behavior: no abnormal motor movements Speech: normal rate/rhythm/volume of speech Affect: euthymic affect Mood: + irritable mood Thought Process: goal directed thought process Thought Content: + paranoid Suicidal Thoughts: denies suicidal thoughts Homicidal Thoughts: denies homicidal thoughts Hallucinations: no auditory hallucinations Cognition: recent memory grossly intact, remote memory grossly intact, attention grossly intact and language grossly intact Insight: + limited insight Judgment: + limited judgement Vital Signs (Past 24 Hours) Last Vital Signs Temp 36.6 C 11/06/24 06:00 Pulse 68 11/06/24 06:00 Resp 16 11/06/24 06:00 BP 103/66 11/06/24 06:50 Pulse Ox 95 11/06/24 06:00 O2 Del Method Room Air 11/06/24 06:00 Results & Data ([facility]) Current Inpatient Medications Current Inpatient Medications: Current Inpatient Medications Acetaminophen (Acetaminophen 325 Mg Tab) 650 mg PO Q4H PRN PRN Reason: Headache or Minor Fever Stop: 11/27/24 20:36 Last Admin: 11/03/24 19:36 Dose: 650 mg Al Hydrox/Mg Hydrox/Simethicone (Aluminum/Magnesium Susp 30 Ml Udc) 30 ml PO Q4H PRN PRN Reason: GI Upset Stop: 11/27/24 20:36 Bismuth Subsalicylate (Bismuth Subsalicylate 262 Mg Chew) 2 tab PO Q30M PRN PRN Reason: Loose Stool/Diarrhea Stop: 11/27/24 20:36 Hydroxyzine HCl (Hydroxyzine Hcl 25 Mg Tab) 50 mg PO HSZ PRN PRN Reason: Insomnia Stop: 11/27/24 20:36 Hydroxyzine HCl (Hydroxyzine Hcl 25 Mg Tab) 25 mg PO Q4H PRN PRN Reason: Anxiety Stop: 11/27/24 20:36 Loratadine (Loratadine 10 Mg Tab) 10 mg PO QAM [facility] Stop: 12/03/24 15:14 Last Admin: 11/06/24 08:41 Dose: 10 mg Lorazepam (Lorazepam 1 Mg Tab) 1 mg PO BID PRN PRN Reason: Delusions Stop: 11/27/24 20:37 Magnesium Citrate (Magnesium Citrate 296 Ml/Btl) 148 ml PO HS [facility] Stop: 12/05/24 21:59 Last Admin: 11/05/24 21:53 Dose: Not Given Magnesium Hydroxide (Magnesium Hydroxide Susp 30 Ml Udc) 30 ml PO DAILY PRN PRN Reason: Constipation Stop: 11/27/24 20:36 Last Admin: 11/03/24 19:32 Dose: 30 ml Miscellaneous (Remove Nicoderm Patch) 1 each N/A DAILY@0859 [facility] Stop: 11/28/24 08:58 Last Admin: 11/06/24 08:48 Dose: 1 each Nicotine (Nicotine 14 Mg/24 Hr Patch) [address] [facility] Stop: 11/27/24 13:59 Last Admin: 11/06/24 08:42 Dose: 1 patch Olanzapine (Olanzapine 10 Mg Tab) 10 mg PO DAILY@1999 [facility] Stop: 12/01/24 19:59 Last Admin: 11/05/24 21:52 Dose: Not Given Psyllium Hydrophilic Mucilloid (Psyllium Husk 4gm Packet) [facility] Stop: 12/02/24 08:59 Last Admin: 11/06/24 08:42 Dose: 4 gm Risperidone (Risperidone 1 Mg Tablet) 1 mg PO BID PRN PRN Reason: Psychosis/Agitation Stop: 11/27/24 20:59 Sodium Chloride (Sodium Chloride 0.65% Na Soln 45 Ml ([place])) 1 - 2 sprays NA PRN PRN PRN Reason: Nasal Dryness/Congestion Stop: 11/27/24 20:36 Last Admin: 10/30/24 15:34 Dose: 2 sprays Mental Health & Subst Abuse Tx Psychiatrist Name of Psychiatrist: Jennifer Forbes Psychiatrist's Date Of Appointment With Psychiatric Provider: 11/10/24 Time of Appointment with Psychiatrist: 8:00 AM Psychiatric Appointment Comment: Arrive at 8am for intake appointment for 1.5 hours for first appt. Therapist Name of Therapist: Refused therapist Laser Cutter Name of Laser Cutter: JOAN Leesarea manager - Jennifer Ramesh Phone Number for Laser Cutter: [phone] Case Management Appointment Comment: rollout manager will assist you with housing Post Discharge Appointments Primary Care Physician Name Of Family Doctor/PCP: Behzad Sarmiento Contact Information Discharge Discharge Address: Homeless
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
== END 2024-11-07 13:32 | disposition home or self-care (01) | DRG 885 ==
LOC: EDSEX → ED 12:25 → SUATTDRO 20:09 → 3S 20:09